=== PATIENT | female | born 1955 | race Hispanic/Latino ===

== ENCOUNTER 2020-06-09 09:37 | Day surgery (SDC) | payer OTHER ==
[~2020-06-09] VITALS: Ht 165.1 cm; Wt 82.4 kg
[2020-06-09] VITALS (8 sets, daily range): BP systolic 90–152; BP diastolic 39–78
[2020-06-09] MEDS ORDERED: SODIUM CHLORIDE 0.9% 1000ML 1,000 ML IV ONE (11:39)
[2020-06-09] MEDS ORDERED: OMEG-148 PO (11:59)
[2020-06-09] MEDS ORDERED: URSO300C4 PO (11:59)
[2020-06-09] MEDS ORDERED: UMEC1DIS IH (11:59)
[2020-06-09] MEDS ORDERED: PILO5POW2 PO (11:59)
[2020-06-09] MEDS ORDERED: CLOP75TA14 PO (11:59)
[2020-06-09] MEDS ORDERED: IRON18TA PO (11:59)
[2020-06-09] MEDS ORDERED: FOLI20CA PO (11:59)
[2020-06-09] MEDS ORDERED: ATOR20TA65 PO (11:59)
[2020-06-09] MEDS ORDERED: ALBU8.5H8 IH (11:59)
[2020-06-09] MEDS ORDERED: AMLO-258 PO (11:59)
[2020-06-09] MEDS ORDERED: GLIP5TAB11 PO (11:59)
[2020-06-09] MEDS ORDERED: ESOM40CA54 PO (11:59)
[2020-06-09] MEDS ORDERED: LACT10SO PO (11:59)
[2020-06-09] MEDS ORDERED: DOCU-116 PO (11:59)
[2020-06-09] MEDS ORDERED: METF-527 PO (11:59)
[2020-06-09] MEDS ORDERED: MECO10005 PO (11:59)
[2020-06-09] MEDS ORDERED: BENA20TA10 PO (11:59)
[2020-06-09] MEDS ORDERED: METO50TA18 PO (11:59)
[2020-06-09] MEDS ORDERED: VITA-300 PO (11:59)
[2020-06-09] MEDS ORDERED: PROPOFOL 10 MG/ML 20ML VIAL IV ONE ×3 (12:01→12:46)
[2020-06-09] MEDS ORDERED: EPHEDRINE SULFATE 50 MG/ML AMPULE ONE (12:21)
== END 2020-06-09 13:45 | disposition home or self-care (01) ==
LOC: ENDO 09:37 → DAH 09:37 → ENDO 13:45
PROVIDERS: ATTEND Internal Medicine
DX: K83.8 Other specified diseases of biliary tract (principal); Z20.828 Contact with and (suspected) exposure to other viral communicable diseases; K31.89 Other diseases of stomach and duodenum; K21.00 Gastro-esophageal reflux disease with esophagitis, without bleeding; I10 Essential (primary) hypertension; I25.10 Atherosclerotic heart disease of native coronary artery without angina pectoris; E78.5 Hyperlipidemia, unspecified; M19.90 Unspecified osteoarthritis, unspecified site; E11.9 Type 2 diabetes mellitus without complications; Z79.899 Other long term (current) drug therapy; Z79.82 Long term (current) use of aspirin; Z79.84 Long term (current) use of oral hypoglycemic drugs; Z98.890 Other specified postprocedural states
CPT/HCPCS: 43237; 82948; 87426; A4215; A4221; A4222; A4223; A4606; A4620; A4657; A4663; J2704 ×3; J3490; J7030

== ENCOUNTER 2020-07-18 06:00 | Day surgery (SDC) | payer OTHER ==
[2020-07-18] VITALS (23 sets, daily range): BP systolic 106–156; BP diastolic 30–99
[~2020-07-18 06:00] MED LIST: ALBU8.5H8 IH; ATOR20TA65 PO; CLOP75TA14 PO; DOCU-116 PO; ESOM40CA54 PO; FOLI20CA PO; GLIP5TAB11 PO; IRON18TA PO; LACT10SO PO; MECO10005 PO; METF-527 PO; OLME1TAB52 PO; OMEG-148 PO; PILO5POW2 PO; UMEC1DIS IH; URSO300C4 PO; VITA-300 PO
[2020-07-18] MEDS ORDERED: SODIUM CHLORIDE 0.9% 1000ML 1,000 ML IV ONE (06:18)
[2020-07-18] MEDS ORDERED: INDOMETHACIN 50 MG SUPP.RECT RC SCH (07:00)
[2020-07-18] MEDS ORDERED: CARV12.511 PO (07:04)
[2020-07-18] MEDS ORDERED: SUCCINYLCHOLINE 200MG/10ML SYR ONE (08:28)
[2020-07-18] MEDS ORDERED: MIDAZOLAM HCL 1 MG/ML 2ML VIAL ONE (08:28)
[2020-07-18] MEDS ORDERED: DEXAMETHASONE SOD PHOSPHATE 10MG/ML 1ML VIAL ONE ×2 (08:28→08:32)
[2020-07-18] MEDS ORDERED: LIDOCAINE PF 2% 5ML ABBOJECT ONE (08:28)
[2020-07-18] MEDS ORDERED: ROCURONIUM 10MG/1ML SYR 10 MG/ML ML ONE (08:29)
[2020-07-18] MEDS ORDERED: NEOSTIGMINE 5MG/5ML SYR IV ONE (08:29)
[2020-07-18] MEDS ORDERED: FENTANYL CITRATE PF 50 MCG/1 ML 2ML VIAL ONE (08:29)
[2020-07-18] MEDS ORDERED: ONDANSETRON HCL 4 MG/2 ML VIAL ONE (08:29)
[2020-07-18] MEDS ORDERED: PROPOFOL 10 MG/ML 20ML VIAL IV ONE ×3 (08:29→10:02)
[2020-07-18] MEDS ORDERED: GLYCOPYRROLATE 1 MG/5 ML SYRINGE ONE (08:29)
[2020-07-18] MEDS ORDERED: IOHEXOL-350 50ML VIAL IV ONE (09:04)
[2020-07-18] MEDS ORDERED: DIATR MEGLU/DIATRIZOATE SODIUM 30 ML BOTTLE ONE (10:09)
== END 2020-07-18 12:40 | disposition home or self-care (01) ==
LOC: DAH 06:00 → ENDO 06:00
PROVIDERS: ATTEND Internal Medicine
DX: D13.30 Benign neoplasm of unspecified part of small intestine (principal); K83.1 Obstruction of bile duct; Z20.828 Contact with and (suspected) exposure to other viral communicable diseases; K83.8 Other specified diseases of biliary tract; I10 Essential (primary) hypertension; K21.9 Gastro-esophageal reflux disease without esophagitis; E11.9 Type 2 diabetes mellitus without complications; D64.9 Anemia, unspecified; E78.5 Hyperlipidemia, unspecified; E03.9 Hypothyroidism, unspecified; M19.90 Unspecified osteoarthritis, unspecified site; K74.3 Primary biliary cirrhosis; K21.00 Gastro-esophageal reflux disease with esophagitis, without bleeding; Z87.19 Personal history of other diseases of the digestive system; Z79.899 Other long term (current) drug therapy; Z98.890 Other specified postprocedural states
CPT/HCPCS: 43274; 74330; 82948 ×7; 88305; A4215 ×2; A4221; A4222; A4223; A4606; A4649; A4657; A4663; C1769; C2617; C2625; C9803; J0330; J1100 ×2; J2001; J2405; J2704 ×3; J2710; J3490; J7030; Q9963; Q9967; U0003; 43251; J2250; J3010

== ENCOUNTER 2020-07-18 18:06 | Inpatient (IN) | payer OTHER ==
[~2020-07-18] VITALS: Ht 165.1 cm; Wt 81.1 kg
[~2020-07-18 18:06] MED LIST changes: +CARV12.511 PO; -LACT10SO PO; +LACT10SO5 PO
[2020-07-18 18:49] LABS: CREATININE 0.8 mg/dL (0.5-1.5); POTASSIUM 3.8 mmol/L (3.5-5.1)
[2020-07-18 19:12] LABS: BASOPHILS % (AUTO) 0.3 % (0.0-5.0); EOSINOPHILS % (AUTO) 0.3 % (0.0-8.0); HEMATOCRIT 33.3 % (36-48); LYMPHOCYTES % (AUTO) 6.5 % (21.0-51.0); MEAN CORPUSCULAR HEMOGLOBIN 30.4 pg (27.0-33.0); MEAN CORPUSCULAR HGB CONC 32.7 g/dL (32.0-36.0); MEAN CORPUSCULAR VOLUME 92.8 fL (79-99); MONOCYTES % (AUTO) 6.7 % (3.0-13.0); NEUTROPHILS % (AUTO) 85.8 % (40.0-77.0); PLATELET COUNT (AUTO) 315 K/uL (130-400); RED BLOOD CELL COUNT(AUTO) 3.59 MIL/uL (4.00-5.50); RED CELL DISTRIBUTION WIDTH 12.6 % (11.0-15.5); WHITE BLOOD COUNT (AUTO) 14.6 K/uL (4.8-10.8)
[2020-07-18 19:25] LABS: ALBUMIN 3.8 g/dL (3.5-5.0); BILIRUBIN,TOTAL 0.4 mg/dL (0.2-1.0); TOTAL PROTEIN, SERUM 7.6 g/dL (6.0-8.3)
[2020-07-18 19:30] LABS: INR 1.16 (0.85-1.15); PROTHROMBIN TIME 12.2 SEC (9.6-11.6)
[2020-07-18] MEDS ORDERED: OCTREOTIDE ACETATE 1,250 MCG in 0.9% NACL 250ML 250 ML IV SCH (19:30)
[2020-07-18] MEDS ORDERED: GLUCAGON 1MG KIT 1 MG ML IM PRN (19:30)
[2020-07-18] MEDS ORDERED: DEXTROSE 50%-WATER 50 ML DISP.SYRIN IV PRN (19:30)
[2020-07-18] MEDS ORDERED: ONDANSETRON 4MG INJ IV PRN (19:30)
[2020-07-18] MEDS ORDERED: LACTULOSE 20 GM/30 ML UDCUP PO PRN (19:30)
[2020-07-18 19:31] LABS: PARTIAL THROMBOPLASTIN TIME 23.4 SEC (26.3-35.5)
[2020-07-18] MEDS ORDERED: OCTREOTIDE ACETATE 100 MCG/ML AMP ONE (19:36)
[2020-07-18] MEDS ORDERED: PANTOPRAZOLE 40 MG/VIAL ONE (19:37)
[2020-07-18] MEDS ORDERED: 0.9%NACL 100ML 100 ML IV ONE (19:39)
[2020-07-18] MEDS ORDERED: PANTOPRAZOLE 40MG INJ 80 MG in 0.9%NACL 100ML 100 ML IV SCH (19:41)
[2020-07-18 19:56] LABS: OCCULT BLOOD,GASTRIC FLUID POSITIVE (NEGATIVE)
[2020-07-18] MEDS ORDERED: NOREPINEPHRIN 4MG/NS 250ML 250 ML IV ONE (20:08)
[2020-07-19 01:57] LABS: HEMATOCRIT 29.6 % (36-48)
[2020-07-19 05:02] LABS: BASOPHILS % (AUTO) 0.2 % (0.0-5.0); EOSINOPHILS % (AUTO) 0.9 % (0.0-8.0); LYMPHOCYTES % (AUTO) 2.5 % (21.0-51.0); MEAN CORPUSCULAR HEMOGLOBIN 30.3 pg (27.0-33.0); MEAN CORPUSCULAR VOLUME 91.7 fL (79-99); MONOCYTES % (AUTO) 4.8 % (3.0-13.0); NEUTROPHILS % (AUTO) 91.2 % (40.0-77.0); PLATELET COUNT (AUTO) 262 K/uL (130-400); RED BLOOD CELL COUNT(AUTO) 3.27 MIL/uL (4.00-5.50); RED CELL DISTRIBUTION WIDTH 12.7 % (11.0-15.5); WHITE BLOOD COUNT (AUTO) 20.9 K/uL (4.8-10.8)
[2020-07-19 05:29] LABS: CREATININE 0.8 mg/dL (0.5-1.5)
[2020-07-19 05:30] LABS: POTASSIUM 2.9 mmol/L (3.5-5.1)
[2020-07-19] MEDS ORDERED: POTASSIUM CHLORIDE 20MEQ/100ML 100 ML IV ONE ×2 (06:01→14:05)
[2020-07-19] MEDS ORDERED: PANTOPRAZOLE 40 MG/VIAL ONE (06:21)
[2020-07-19 12:15] VITALS: BP 159/69
[2020-07-19] MEDS ORDERED: EPINEPHRINE PF 1MG AMP ONE (12:25)
[2020-07-19] MEDS ORDERED: LIDOCAINE HCL-MPF 1% 2ML VIAL ONE (14:05)
[2020-07-19 14:16] LABS: HEMATOCRIT 26.7 % (36-48)
[2020-07-19 17:33] LABS: CREATININE 0.8 mg/dL (0.5-1.5); MAGNESIUM 1.5 mg/dL (1.80-2.40); POTASSIUM 3.9 mmol/L (3.5-5.1)
[2020-07-19] MEDS ORDERED: MAGNESIUM 2GM PREMIX 50ML 50 ML IV SCH (18:00)
[2020-07-19] MEDS ORDERED: MAGNESIUM 2GM PREMIX 50ML 50 ML IV ONE (18:07)
[2020-07-19] MEDS ORDERED: INSULIN HUMULIN R 100 UNIT/ML 3ML ONE (18:08)
[2020-07-19] MEDS ORDERED: CEFTRIAXONE 1G VIAL ONE (18:10)
[2020-07-19] MEDS ORDERED: DEXAMETHASONE SOD PHOSPHATE 10MG/ML 1ML VIAL ONE (18:10)
[2020-07-19] MEDS ORDERED: PANTOPRAZOLE 40 MG TAB DR ONE (19:59)
[2020-07-19] MEDS ORDERED: AMLODIPINE 5 MG TAB ONE ×2 (19:59→20:45)
[2020-07-19] MEDS: PANTOPRAZOLE 40 MG TAB DR PO SCH (21:00)
[2020-07-19] MEDS: AMLODIPINE 5 MG TAB PO SCH (21:00)
[2020-07-20] MEDS: 0.9%NACL 1000ML 1,000 ML IV SCH ×2 (01:30→10:57)
[2020-07-20] MEDS: INSULIN HUMULIN R 100 UNIT/ML 3ML SQ SCH ×4 (06:00→17:29)
[2020-07-20 06:21] LABS: HEMATOCRIT 25.8 % (36-48); MEAN CORPUSCULAR HEMOGLOBIN 30.1 pg (27.0-33.0); MEAN CORPUSCULAR HGB CONC 32.2 g/dL (32.0-36.0); MEAN CORPUSCULAR VOLUME 93.5 fL (79-99); NEUTROPHILS % (AUTO) 80.7 % (40.0-77.0); PLATELET COUNT (AUTO) 188 K/uL (130-400); RED BLOOD CELL COUNT(AUTO) 2.76 MIL/uL (4.00-5.50); RED CELL DISTRIBUTION WIDTH 13.1 % (11.0-15.5); WHITE BLOOD COUNT (AUTO) 8.9 K/uL (4.8-10.8)
[2020-07-20 06:22] LABS: BASOPHILS % (AUTO) 0.3 % (0.0-5.0); EOSINOPHILS % (AUTO) 0.8 % (0.0-8.0); LYMPHOCYTES % (AUTO) 10.2 % (21.0-51.0); MONOCYTES % (AUTO) 7.6 % (3.0-13.0)
[2020-07-20 06:34] LABS: CREATININE 0.7 mg/dL (0.5-1.5); POTASSIUM 4.3 mmol/L (3.5-5.1)
[2020-07-20] MEDS ORDERED: AMLODIPINE 5 MG TAB ONE (07:52)
[2020-07-20] MEDS ORDERED: LISINOPRIL 5 MG TABLET ONE (07:52)
[2020-07-20] MEDS ORDERED: PANTOPRAZOLE 40 MG TAB DR ONE (07:52)
[2020-07-20] MEDS: AMLODIPINE 5 MG TAB PO SCH ×2 (09:00→20:11)
[2020-07-20] MEDS: LISINOPRIL 10 MG TABLET PO SCH (09:00)
[2020-07-20] MEDS: PANTOPRAZOLE 40 MG TAB DR PO SCH ×2 (09:00→20:11)
[2020-07-20 09:41] VITALS: BP 136/71
[2020-07-20 09:47] LABS: % IRON SATURATION 8.9 % (22-44)
[2020-07-20 11:11] VITALS: BP 114/57
[2020-07-20] MEDS ORDERED: MAGNESIUM 2GM PREMIX 50ML 50 ML IV PRN (13:15)
[2020-07-20] MEDS ORDERED: COMPOUND IV MISC 1 EACH IVSOLN MISC PRN (13:45)
[2020-07-20 15:59] VITALS: BP 136/66
[2020-07-20] MEDS: IRON SUCROSE COMPLEX 100 MG in 0.9%NACL 50ML 50 ML IV SCH (16:05)
[2020-07-20 20:11] VITALS: BP 118/65
[2020-07-20 23:45] VITALS: BP 140/68
[2020-07-21 03:36] VITALS: BP 118/55
[2020-07-21 04:34] LABS: BASOPHILS % (AUTO) 0.3 % (0.0-5.0); EOSINOPHILS % (AUTO) 1.3 % (0.0-8.0); MEAN CORPUSCULAR HGB CONC 32.6 g/dL (32.0-36.0); MONOCYTES % (AUTO) 11.4 % (3.0-13.0); NEUTROPHILS % (AUTO) 66.5 % (40.0-77.0); PLATELET COUNT (AUTO) 189 K/uL (130-400); RED CELL DISTRIBUTION WIDTH 12.7 % (11.0-15.5)
[2020-07-21 04:52] LABS: ALBUMIN 2.7 g/dL (3.5-5.0); BILIRUBIN,TOTAL 0.2 mg/dL (0.2-1.0); CREATININE 0.6 mg/dL (0.5-1.5)
[2020-07-21] MEDS: INSULIN HUMULIN R 100 UNIT/ML 3ML SQ SCH ×3 (05:53→16:30)
[2020-07-21] MEDS ORDERED: POTASSIUM CHLORIDE 10% ELIXIR 20 MEQ/15 ML UDCUP PO PRN (06:00)
[2020-07-21] MEDS ORDERED: LIDOCAINE HCL-MPF 1% 2ML VIAL IV PRN (06:00)
[2020-07-21] MEDS ORDERED: POTASSIUM CHLORIDE 20MEQ/100ML 100 ML IV PRN (06:00)
[2020-07-21] MEDS: KCL 20 MEQ ERTAB PO PRN ×3 (06:07→14:07)
[2020-07-21 08:00] VITALS: BP 145/64
[2020-07-21] MEDS: IRON SUCROSE COMPLEX 100 MG in 0.9%NACL 50ML 50 ML IV SCH (11:08)
[2020-07-21] MEDS: AMLODIPINE 5 MG TAB PO SCH (11:12)
[2020-07-21] MEDS: PANTOPRAZOLE 40 MG TAB DR PO SCH (11:12)
[2020-07-21] MEDS: LISINOPRIL 10 MG TABLET PO SCH (11:13)
[2020-07-21 12:00] VITALS: BP 144/70
[2020-07-21 16:00] VITALS: BP 155/86
[2020-07-21] MEDS ORDERED: FERR325T22 PO (18:21)
[2020-07-21] MEDS ORDERED: KCL 20 MEQ ERTAB PO SCH (19:30)
[2020-07-21 20:33] VITALS: BP 145/74
== END 2020-07-21 21:00 | disposition home or self-care (01) | DRG 378 ==
LOC: EDH 18:06 → EDHIP 19:17 → 4DH 07-20 09:02 → OBSVTOIN 07-20 16:33
PROVIDERS: ADMIT Internal Medicine; ATTEND Internal Medicine
PROC: 0DJ08ZZ Inspection of Upper Intestinal Tract, Via Natural or Artificial Opening Endoscopic (ICD-10-PCS; principal; 2020-07-19)
DX: K26.4 Chronic or unspecified duodenal ulcer with hemorrhage (principal); D62 Acute posthemorrhagic anemia; I85.00 Esophageal varices without bleeding; I10 Essential (primary) hypertension; E11.9 Type 2 diabetes mellitus without complications; K74.60 Unspecified cirrhosis of liver; M34.1 CR(E)ST syndrome; M06.9 Rheumatoid arthritis, unspecified; K26.9 Duodenal ulcer, unspecified as acute or chronic, without hemorrhage or perforation; Z83.3 Family history of diabetes mellitus; Z82.49 Family history of ischemic heart disease and other diseases of the circulatory system; K29.51 Unspecified chronic gastritis with bleeding
CPT/HCPCS: 36415; 43235; 43251; 43274; 71045; 74330; 80048; 80053; 82271; 82550; 82948; 83540; 83550; 83735; 84132; 84484; 85014; 85018; 85025; 85610; 85730; 86850; 86900; 86901; 88305; 93005; A4606; C1769; C2617; C9113; C9803; G0378; J0171; J0330; J0696; J1100; J1756; J1815; J2001; J2250; J2354; J2405; J2704; J2710; J3010; J3475; J3480; J3490; J7030; J7050; Q9963; Q9967; U0003